=== PATIENT | male | born 1955 | race Caucasian/White ===

== ENCOUNTER 2021-02-02 07:03 | Observation (INO) ==
--- NOTE | 2021-01-28 09:12 | Anesthesiology Consultation ---
Date of Service January 28, 2021 Assessment & Plan (1) Encounter for pre-operative examination: Case originally scheduled for 12/16/20. Patient seen in PAT by Bebe Rueda PA-C on 11/26/20, chart cleared and pt acceptable risk for surgery. Case R/S to 02/02/21. 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 Preoperative COVID19 testing to be completed on 01/28 at [facility] per pt. Chart Review Chart Review: Acceptable Risk for Surgery and entry level finance initiated History Surgery Operation Date: 02/02/21 12:45 Proposed Procedures p Left Total Shoulder Arthroplasty, Open Distal Clavicle Excision - Urbano Luis MD Height/Weight Height: 5 ft 9 in Weight: 81.647 kg Allergies Allergy/AdvReac Type Severity Reaction Status Date / Time No Known Allergies Allergy Verified 01/13/21 11:14 Medications Home Medications Medication Instructions Recorded Confirmed Last Taken flaxseed oil 1,000 mg PO QAM 11/16/20 01/13/21 Unknown ibuprofen 600 mg PO HS 11/16/20 01/13/21 Unknown multivitamin 1 tab PO 3XWK 11/16/20 01/13/21 Unknown sertraline 50 mg PO QAM 11/16/20 01/13/21 Unknown Past Medical History Medical History Degenerative disc disease Depression Hx of esophageal reflux Controlled with dietary changes Hyperlipidemia Osteoarthritis Temporomandibular joint disorder Left side, no locking Past Family History Family History Father Family history of esophageal cancer Other No family history of adverse response to anesthesia Past Surgical History Surgical History H/O oral surgery H/O shoulder surgery R/L shoulder History of carpal tunnel release R/L History of colonoscopy History of herniorrhaphy Right inguinal History of total shoulder replacement Right Hx of vasectomy Social History Smoking Status: Current every day smoker tobacco type: cigarettes Smoking cigarettes per day: 10-15 CIGS A DAY Do You Dip or Chew Tobacco: No Hx Alcohol Use: No Hx Substance Use: Yes substance use type: marijuana Substance Use Type Other:: MARIJUANA INHALATION 2 X A MONTH-FOR PAIN-NO CARD Testing Laboratory Results 01/10/21 WBC: 6.7 H/H: 16.1/46.6 PLATELETS: 246 SODIUM: 140 POTASSIUM: 4.6 CHLORIDE: 106 CO2: 27 BUN: 19 CREATININE: 0.83 GLUCOSE: 99 A1C: 5.1% PT: 12.2 PTT: 29.7 INR: 0.9 UA: WNL Electrocardiogram Date: 11/26/20 Findings: + SB @ (57bpm with PACs) iRBBB. Due to system error, EKG was not uploaded into EMR and can only be viewed via [facility] system. Chest X-Ray Date: 11/26/20 Findings: + NAD
--- NOTE | 2021-02-01 19:14 | History & Physical Report ---
Date of Service February 01, 2021 Assessment & Plan (1) Primary osteoarthritis, left shoulder: Treatment options discussed with patient. He has failed conservative measures as above. He would like to proceed with surgical intervention. Risks, benefits and alternatives to surgery including but not limited to infection, DVT, pain, stiffness, need for revision surgery, damage to blood vessels, damage to nerves, PE, , were discussed with the patient and they wish to proceed. Plan for left total shoulder arthroplasty, distal clavicle excision, possible needle barbotage excision of calcific tendinitis. Surgery scheduled for [facility] on 02/02/21. Will plan on OPPT post discharge. All questions answered. History of Present Illness Chief Complaint: Left shoulder pain Primary Care Provider: NO PCP 65 yo male with PMHx significant for depression and past history of alcohol abuse presents with longstanding left shoulder pain. Pain interfering with his ability to carry out daily activities. He has had prior arthroscopy in this shoulder, as well as failed conservative measures including therapy, injections, and anti-inflammatories. He would like to proceed with surgical intervention. Patient denies headaches, sweats, fevers, chills, double vision, blurred vision, cough, sore throat, dysphagia, chest pain, sob, wheezing, n/v/d/c, numbness, t ingling, fatigue, urinary symptoms, mood disorders. ROS positive for left shoulder pain and stiffness. Allergies Allergy/AdvReac Type Severity Reaction Status Date / Time No Known Allergies Allergy Verified 01/13/21 11:14 Home Medications Medication Instructions Recorded Confirmed Type flaxseed oil 1,000 mg PO QAM 11/16/20 01/13/21 History ibuprofen 600 mg PO HS 11/16/20 01/13/21 History multivitamin 1 tab PO 3XWK 11/16/20 01/13/21 History sertraline 50 mg PO QAM 11/16/20 01/13/21 History Past Med/Surg History Medical History Degenerative disc disease Depression Hx of esophageal reflux Controlled with dietary changes Hyperlipidemia Osteoarthritis Temporomandibular joint disorder Left side, no locking Surgical History H/O oral surgery H/O shoulder surgery R/L shoulder History of carpal tunnel release R/L History of colonoscopy History of herniorrhaphy Right inguinal History of total shoulder replacement Right Hx of vasectomy Family History Father Family history of esophageal cancer Other No family history of adverse response to anesthesia Social History Smoking Status: Current every day smoker Cigarettes Per Day: 10-15 CIGS A DAY; Second Hand Exposure: No; Hx Alcohol Use: No Hx Substance Use: Yes Substance Use Type Other:: MARIJUANA INHALATION 2 X A MONTH-FOR PAIN-NO CARD Preferred Language: [place] Islander Communication Ability: Effective Steam Blocker Required: No Beliefs That Will Affect Care: None Current Living Situation: Spouse Feels Safe at Home: Yes Assistive Devices: Contacts and Glasses Review of Systems All systems reviewed & are unremarkable except as noted in HPI & below Physical Exam Constitutional: well developed and well nourished; no acute distress Eyes: PERRL, conjunctivae normal, anicteric sclerae ENMT: external ear and nose normal, oropharynx normal Neck: trachea midline, no thyromegaly Respiratory: normal respiratory effort, lungs clear to auscultation Cardiovascular: RRR, no murmur, no edema Musculoskeletal: Left shoulder: Tenderness AC joint and anterior glenoid. Active painful ROM. Abduction and FF 0-170 degrees. ER to 70 degrees, IR to L4. Strength is full in all directions, pain with resistive strength testing. Skin: no rashes, warm and dry Neurologic: patellar DTR's 2+ bilat, sensation intact Psychiatric: A+Ox3, euthymic affect Results & Data ([facility]) Diagnostic Findings X-rays left shoulder demonstrate that he has type A wear of the glenoid, bone on bone on axillary view, type I acromion, some hypertrophy, and moderate arthritic changes of the distal clavicle AC joint area. There is some rounded calcium deposit of the rotator cuff consistent with calcific tendonitis of the rotator cuff. Four-view left shoulder. MRI demonstrates intact rotator cuff
[~2021-02-02 07:03] MED LIST: ACETAMINOPHEN 500 MG TAB PO SCH; BUPIVACAINE 0.5 % 5 MG/1 ML PF 10ML VIAL ONE; CeleBREX 200 MG CAP PO SCH; FAMOTIDINE 20 MG TAB PO SCH; GABAPENTIN 600 MG DOSE PO SCH; LR 15ML/HR IV SCH; METOCLOPRAMIDE HCL 10 MG TABLET PO SCH; TRANEXAMIC ACID 1,000 MG **IV Intra-op IV SCH; TRANEXAMIC ACID 1,000 MG **IV Pre-op IV SCH; ceFAZolin 2000MG 2,000 MG/15 ML SYR IV SCH; dexAMETHasone 4 MG TAB PO SCH
[2021-02-02] MEDS ORDERED: LIDOCAINE 2% 2 ML VIAL/AMP(20MG/ML) INFIL ONE (08:00)
[2021-02-02] MEDS ORDERED: ONDANSETRON INJ 2 MG/ML 2 ML VIAL ONE (08:00)
[2021-02-02] MEDS ORDERED: PROPOFOL IV EMULSION 10 MG/ML 20 ML VIAL IV ONE (08:00)
[2021-02-02] MEDS ORDERED: DEXAMETHASONE SOD INJ 4 MG/ML VIAL ONE (08:00)
[2021-02-02] MEDS ORDERED: ROCURONIUM BROMIDE 10 MG/ML 5 ML VIAL IV ONE (08:00)
[2021-02-02] MEDS ORDERED: MIDAZOLAM HCL 1 MG/ML 2ML VIAL ONE (08:01)
[2021-02-02] MEDS ORDERED: fentaNYL citrate 100 MCG/2 ML VIAL ONE (08:01)
--- NOTE | 2021-02-02 09:34 | History & Physical Bridge Note ---
Date of Service February 02, 2021 History & Physical Bridge Note I have examined the patient, reviewed the History & Physical and in the interval since the performance of the History & Physical I have noted the following changes of clinical significance: no changes noted
[2021-02-02] MEDS ORDERED: EpINEphrine HCL INJ 1 MG/ML 1ML SYRINGE ONE (10:00)
[2021-02-02] MEDS ORDERED: fentaNYL citrate 100 MCG/2 ML VIAL IV PRN (11:34)
[2021-02-02] MEDS ORDERED: ATROPINE SULFATE 0.1 MG/ML 10ML SYR IV PRN (11:34)
[2021-02-02] MEDS ORDERED: ONDANSETRON INJ 2 MG/ML 2 ML VIAL IV PRN ×2 (11:34→14:50)
[2021-02-02] MEDS ORDERED: ePHEDrine sulfate 50 MG/ML AMP IV PRN (11:34)
[2021-02-02] MEDS ORDERED: NEOSTIGMINE METHYLSULFATE 1 MG/ML 10ML VIAL ONE (12:11)
[2021-02-02] MEDS ORDERED: GLYCOPYRROLATE 0.2 MG/ML VIAL ONE (12:11)
--- NOTE | 2021-02-02 13:07 | Post Operative Brief Note ---
Immediate Post Op Note v1 Date of Surgery February 02, 2021 Pre & Post Diagnosis Operation Date: 02/02/21 09:20 Pre-Op Diagnosis: Primary Osteoarthritis Left Shoulder glenohumeral and AC joint with calcific tendinitis rotator cuff Post-Op Diagnosis: Primary Osteoarthritis Left Shoulder glenohumeral and AC joint with calcific tendinitis rotator cuff, rotator cuff tendinopathy partial tear bursal surface supraspinatus and biceps tendinopathy bicipital groove bone spurs I identified the patient and participated in the time-out.: Yes Procedure Operation Date: 02/02/21 09:20 Actual Procedures p Left Total Shoulder Arthroplasty, Open Distal Clavicle Excision, biceps tenodesis, needle barbotage calcium deposit rotator cuff- Urbano Luis MD Surgeon Urbano Luis MD Baggage 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 Back up surgeon: was not required during procedure.
--- NOTE | 2021-02-02 14:06 | Anesthesiology Progress Note ---
Date of Service February 02, 2021 Anesthesia Post Procedure Vital Signs Vital Signs: Temp Pulse Pulse Resp BP Pulse Ox 02/02/21 14:00 68 20 135/75 94 02/02/21 13:50 72 18 132/71 97 02/02/21 13:40 62 15 128/65 97 02/02/21 13:32 36 C L 75 16 136/62 98 02/02/21 07:33 37.1 C 53 L 18 132/64 96 Transfer of Care Handoff Completed per policy Notes Mental Status: alert / awake / arousable and participated in evaluation Patient Amnestic to Procedure: Yes Nausea / Vomiting: adequately controlled Pain: adequately controlled Airway Patency, RR, SpO2: stable & adequate BP & HR: stable & adequate Hydration State: stable & adequate Anesthetic Complications: no major complications apparent and Pt Satisfied with anesthetic care Notes: block is functioning well
--- NOTE | 2021-02-02 14:33 | XRay Report ---
XR shoulder LT min 2V routine CLINICAL HISTORY: Post shoulder surgery COMPARISON: None. DISCUSSION: There are postsurgical changes of a left shoulder arthroplasty. There is no evidence of d islocation. There are overlying skin quintin and surgical drains present. There is gas within soft ti ssues consistent with recent surgery. There are left basilar pulmonary airspace opacities, likely ate lectatic. IMPRESSION: Postsurgical changes of a total left shoulder arthroplasty. No evidence of dislocation ACT 112: Negative or not required by law. Electronically signed by: Desean Morris M.D. 02/02/2021 2:32 PM
[2021-02-02] MEDS ORDERED: MULTIVITAMIN TAB PO SCH (14:50)
[2021-02-02] MEDS ORDERED: METOCLOPRAMIDE HCL INJ 5 MG/ML 2 ML VIAL IV PRN (14:50)
[2021-02-02] MEDS ORDERED: HYDROmorphone INJ 0.5 MG/0.5 ML SYR IV PRN (14:50)
[2021-02-02] MEDS ORDERED: NALOXONE HCL 0.4 MG/1 ML VIAL/CARP IV PRN (14:50)
[2021-02-02] MEDS ORDERED: oxyCODONE HCL IR 5 MG TAB (IMMEDIATE RELEASE) PO PRN (14:50)
[2021-02-02] MEDS ORDERED: MAGNESIUM HYDROXIDE SUSP 30 ML UDC PO PRN (14:50)
[2021-02-02] MEDS ORDERED: bisacodyL 10 MG SUPP PR PRN (14:50)
[2021-02-02] MEDS ORDERED: TAMSULOSIN HCL 0.4 MG CAP PO PRN (14:50)
[2021-02-02] MEDS ORDERED: SODIUM CHLORIDE 0.9% 1000ML 1,000 ML IV SCH (15:00)
[2021-02-02] MEDS: ACETAMINOPHEN 500 MG TAB PO SCH ×2 (15:40→22:44)
--- NOTE | 2021-02-02 17:02 | Consultation ---
Date of Consultation February 02, 2021 Assessment & Plan (1) Primary osteoarthritis, left shoulder: s/p arthroplasty pain is controlled vitals stable, labs stable plan for discharge to home per ortho told him to check with his PCP about sleep aide History of Present Illness Requesting Physician: Janelle Reason for Consultation: medical management A ttending Physician: Urbano Luis MD History of Present Illness 65 yo male here for elective shoulder arthroplasty, tolerated well, pain is starting to get worse. He is breathing well, no chest pain, no fever, no nausea. He says that the last time he had shoulder surgery his main issue was that he could not sleep for 3 days due to the intensity of the pain. He kept telling me that he has a very high pain tolerance. He says that he used to drink alcohol heavily, in the past when he would get anesthesia he would require more medication than a typical person due to his tolerance. He says that he can take all the narcotics they prescribe but he won't be able to sleep. He kept asking for a sleep aide on discharge "maybe something like Valium to knock me out." I explained that I am a hospitalist, I would not be following him after discharge and he lives over an hour away from here. I would not feel comfortable prescribing him a benzodiazepine on top of narcotics. Told him to contact his PCP on discharge to see if they would be willing to prescribe since they know him and could follow him in the office to see how he was doing. I reviewed the chart, operative report and lab studies. Allergies Allergy/AdvReac Type Severity Reaction Status Date / Time No Known Allergies Allergy Verified 02/02/21 07:30 Home Medications Medication Instructions Recorded Confirmed Type flaxseed oil 1,000 mg PO QAM 11/16/20 02/02/21 History multivitamin 1 tab PO 3XWK 11/16/20 02/02/21 History sertraline [Zoloft] 50 mg PO QAM 11/16/20 02/02/21 History acetaminophen 1,000 mg PO Q8 14 Days #84 tab 02/03/21 Rx aspirin [Ecotrin] 325 mg PO DAILY 30 Days #30 tab 02/03/21 Rx oxycodone 5 - 10 mg PO Q4H PRN #30 tab 02/03/21 Rx Patient History Medical History Degenerative disc disease Depression Hx of esophageal reflux Controlled with dietary changes Hyperlipidemia Osteoarthritis Temporomandibular joint disorder Left side, no locking Surgical History H/O oral surgery H/O shoulder surgery R/L shoulder History of carpal tunnel release R/L History of colonoscopy History of herniorrhaphy Right inguinal History of total shoulder replacement Right Hx of vasectomy Family History Father Family history of esophageal cancer Other No family history of adverse response to anesthesia Social History Smoking Status: Current every day smoker Cigarettes Per Day: 10-15 CIGS A DAY; Second Hand Exposure: No; Do You Dip or Chew Tobacco: No; Hx Alcohol Use: No Hx Substance Use: Yes Substance Use Type Other:: MARIJUANA INHALATION 2 X A MONTH-FOR PAIN-NO CARD Preferred Language: [place]an Communication Ability: Effective Golf Course Laborer Required: No Beliefs That Will Affect Care: None marital status: Current Living Situation: Spouse Other Information That Helps Us Care for You: No Feels Safe at Home: Yes Safety Concerns: Feels Safe At This Time Assistive Devices: None Assistive Devices Comment: PT WILL WEAR GLASSES DOS Review of Systems Review of Systems: All systems reviewed & are unremarkable except as noted in Subjective Constitutional: no fever, no chills, no sweats, no fatigue and no weakness Respiratory: no cough and no dyspnea Cardiovascular: no chest pain, no palpitations, no syncope and no edema Gastrointestinal: no abdominal pain, no nausea, no vomiting, no constipation and no diarrhea/loose stools Musculoskeletal: + joint pain (shoulder pain) Physical Exam Constitutional: WD/WN, vitals as above comfortable; no acute distress Eyes: PERRL, conjunctivae normal, anicteric sclerae ENMT: external ear and nose normal, oropharynx normal Neck: trachea midline, no thyromegaly Respiratory: normal respiratory effort, lungs clear to auscultation Cardiovascular: RRR, no murmur, no edema Gastrointestinal (Abdomen): normal bowel sounds, soft, nontender, no hepatosplenomegaly Musculoskeletal: Head/Neck/Chest: normocephalic, head atraumatic and neck supple Extremities: strength 5/5 throughout; no cyanosis, no clubbing and no petechiae Shoulder: + shoulder abnormal to inspection (left shoulder swollen, tender, limited ROM due to surgery) Skin: no rashes, warm and dry Neurologic: patellar DTR's 2+ bilat, sensation intact and PERRL, EOMI, accommodation nl, no face palsy, no dysarthria Psychiatric: A+Ox3, euthymic affect Lymphatic: no cervical or axillary lymphadenopathy Results & Data ([facility]) Vital Signs (Past 12 Hours) Vital Signs Temp Pulse Pulse Pulse Resp BP Pulse Ox 02/02/21 16:22 36.4 C L 70 16 128/71 94 02/02/21 15:23 67 18 133/81 94 02/02/21 14:57 66 18 138/77 94 02/02/21 14:20 36.4 C L 75 18 132/77 94 02/02/21 14:10 67 18 131/74 95 02/02/21 14:00 68 20 135/75 94 02/02/21 13:50 72 18 132/71 97 02/02/21 13:40 62 15 128/65 97 02/02/21 13:32 36 C L 75 16 136/62 98 02/02/21 07:33 37.1 C 53 L 18 132/64 96 PG Care Time/CCT Total # of Minutes Spent Total Time Spent with Patient: Total time spent is greater than 50% in coordination of care (as documented) at patient's floor/unit and/or counseling patient: Coding Level of Care Code 85345 Inpt Consult Level 2 Diagnoses Primary osteoarthritis, left shoulder M19.012
[2021-02-02] MEDS: ceFAZolin 2000MG 2,000 MG/15 ML SYR IV SCH (17:18)
[2021-02-02] MEDS: DOCUSATE SODIUM 100 MG CAP PO SCH (20:29)
[2021-02-02] MEDS ORDERED: SENNA 8.6 MG TAB PO SCH (21:00)
[2021-02-03] MEDS: ceFAZolin 2000MG 2,000 MG/15 ML SYR IV SCH (01:01)
--- NOTE | 2021-02-03 03:28 | Operative Report (OR) ---
DATE OF OPERATION: 02/02/2021 INDICATION FOR PROCEDURE: A 65-year-old male with chronic progressive osteoarthritis of his left shoulder. The patient has failed all conservative management. The patient has history of total shoulder replacement on his opposite shoulder. His radiographs of the left shoulder demonstrate he is [id number] in the glenohumeral joint, typical inferior humeral osteophyte, moderately large. He has some calcific tendinitis of the rotator cuff and has advanced arthritis in the AC joint. The patient has a type A central wear pattern. PREOPERATIVE DIAGNOSIS: End-stage osteoarthritis, glenohumeral joint and AC joint, left shoulder. POSTOPERATIVE DIAGNOSES: End-stage osteoarthritis, glenohumeral joint and AC joint, left shoulder including some partial tearing of the rotator cuff bursal surface, which is superficial and calcific tendinitis of the rotator cuff and marked biceps tendinopathy with bicipital bone groove spurs and biceps tenosynovitis. PROCEDURE: Left total shoulder arthroplasty with stemless total shoulder replacement, biceps tenodesis, distal clavicle excision, needle barbotage, calcium deposit, debridement of partial tear of rotator cuff. SURGEON: Urbano Luis MD PRODUCTION UTILITY WORKER: Jose Echeverria PA-C ANESTHESIA: Regional block and general. OPERATIVE PROCEDURE: The patient was taken to the operating room, anesthetized under regional block and general anesthetic. The patient was positioned on the operating room table in about a 40-degree beach chair position. A towel was placed in the medial border of his left scapula. He was translated to left side of the bed, so his shoulder could be manipulated off the bed as necessary. His head was placed on a foam headrest and he had protective eyewear placed. He had TEDs and SCDs placed. All the extremities were well padded. His left upper extremity exam demonstrated he had about 150 degrees forward elevation, 80 degrees of abduction, external rotation to 70 degrees, and internal rotation only to 40. He had [id number] crepitation. He had prominent AC joint. Left shoulder was sterilely prepped and draped with ChloraPrep. An anterior deltopectoral approach was performed. Skin was incised sharply. Subcutaneous flaps were elevated. Cephalic vein was dissected out and retracted laterally with the deltoid. Deltoid was retracted laterally, pectoralis medially. The conjoined tendon was identified. The clavipectoral fascia was divided at the lateral margin of conjoined tendon extending up to the CA ligament, which was preserved. There was bursitis over the subscapularis and rotator cuff, this was resected. This revealed some bursal-sided linear wear in the supraspinatus tendon, which was superficial and this was debrided back to stable intact nonfrayed fibers. There was no full thickness rotator cuff tear anywhere and no evidence of any high-grade partial tear anywhere. In the calcific tendinitis area, based on MRI and x-ray, we did a needle barbotage in that area. The calcium deposit was not well visualized in the rotator cuff tissue. Then the humerus was then exposed by first opening up the biceps tendon sheath and this demonstrated chronic tenosynovitis and proximally in the bicipital groove there were large osteophytes impinging on the biceps tendon and there was widening and tendinopathy of the biceps tear. Thickened tenosynovium was resected. The upper centimeter of the pectoralis was released for inferior exposure. Then #2 FiberWire was passed through the pectoralis tendon and the biceps tendon was tenodesed to the pectoralis tendon and the proximal biceps was resected proximal to the tenodesis site. A #2 FiberWire sutures were utilized for the tenodesis. Bicipital bone spurs were then resected with a rongeur. Then circumflex vessels were identified, tied off with silk ties, and divided laterally. Then Metzenbaum scissors was used to split the subscapularis tendon fibers at the level of the circumflex vessels and left a small cuff of tissue for protection of the axillary nerve inferiorly using a Kitner elevator to elevate the muscle fibers off the inferior capsule. A blunt Hohmann retractor was placed between the capsule and the axillary nerve. The retractor was placed superiorly. The rotator interval was opened up and extended laterally and then a transtendinous incision was made leaving a cuff of tissue on the lesser tuberosity for repair of the subscapularis. Subscapularis and capsule were taken down in one layer. The capsule was then released off the inferior glenoid neck exposing the large inferior osteophytes. The axillary nerve was protected with the inferior retractor. The osteophytes were resected with artist chisel and rongeur, so all osteophytes were resected. The capsule was also released for further exposure. A #1 Vicryl traction suture was placed into the edge of the subscapularis tendon. The Fukuda retractor was placed protecting the humeral head posteriorly. The capsule was released down to the glenoid under direct visualization, the capsule was released anteriorly off the glenoid and the rotator interval was released to meet that making a 360-degree release of the subscapularis. The glenoid was inspected and was completely eburnated bone with no articular cartilage remaining. There was central wear pattern. At this time, the glenoid labrum was resected. The remainder of the biceps tendon attached to the superior glenoid was resected. An anterior inferior, posterior inferior capsular release was performed with the axillary nerve protected with the retractor using electrocautery on bone and [place] elevator. At this time, the posterior retractors were readjusted to gain full exposure of the glenoid. Anterior Bankart retractor was placed. Prior to placing these retractors, we addressed the humeral head cut. The humeral head was exposed with extension and external rotation and retractors were placed about the humeral head. The humeral head demonstrated eburnated bone and some flattening and bone loss with central wear pattern. The oscillating saw was used to resect the anatomical head cut. The humerus was sized for a 50 x 19 humeral head component based on preoperative templating. The guide pin was placed for the stemless Tornier humeral head. The guide pin was placed and then the surface reamer was used and then the central drill was used for the size 3 nucleus for the Simpliciti humeral head component. Then the trial Dora shaped punch was used left slightly proud and a cup protector was placed. Then the humeral head was retracted posterior to the glenoid with the Tornier retractor and blunt Hohmann retractor and Bankart retractor anteriorly. The glenoid was sized for a large 40 radius CortiLoc pegged glenoid component. The guide for the central drill hole was placed followed by drilling the central hole followed by the reamer, followed by widening the central hole followed by the peg guide drilling 3 pegs and irrigating everything out and placing a trial large 40 radius CortiLoc glenoid component, which had excellent press fit and stability. This was removed and then after copious irrigation, the drill holes were packed with epinephrine-soaked tampon sponges and the [place] G cement was vacuum mixed and then after further drying off of the glenoid, removing of the tampons, we went ahead and cemented the large 40 radius CortiLoc peg glenoid into position, central peg being pressfit, peripheral pegs cemented, back of the implant cemented. All excess cement was cleared. The implant was held in position until the cement cured. Then attention was taken back to trialing of the 50 x 19 head, which had excellent range of motion and stability and was appropriate size. The trials were then removed. A drill hole was made in the hard bone in the biceps groove and transosseous #5 FiberWire sutures were placed x3. After further irrigation, the final humeral head components were placed with the Simpliciti nucleus size 3 impacted into position, left slightly proud, and then the humeral head 50 x 19 was placed into the nucleus and then both were impacted tightly to fully seat the implant. [place] elevator was used to assess the stability and it was completely stable. The humeral head was then reduced to the glenoid. The subscapularis and capsule repaired with transosseous #5 FiberWire sutures using Dayo-Noe suture technique. Lateral row repair with interrupted #2 Fiberwire [id number] sutures. Rotator interval was closed with interrupted #2 Fiberwire laubxy-lj-fkkyx sutures. The pectoralis was repaired with gquiwg-in-twqdg #2 FiberWire suture, placing the sutures through the biceps tendon to reinforce the stability of the biceps tenodesis. The arm was taken through range of motion and the patient had 150 degrees forward elevation, 90 to 100 degrees of abduction, and 60 degrees external rotation without any tension on the repair. A sponge was placed into the wound. Then a transverse incision was made over the distal clavicle. The skin was incised sharply and then subcutaneous flaps were elevated and the trapezius deltoid fascia was divided longitudinally over the distal clavicle, reflected off the distal clavicle, a 1 cm of the distal clavicle was resected with an oscillating saw. All dorsal osteophytes were resected with a rongeur. The wound was irrigated and the deltotrapezial fascia was repaired with interrupted jznklp-wa-goruy #2 FiberWire sutures and then the subcutaneous tissue was closed with interrupted 2-0 Vicryl sutures and the skin was then closed with quintin and then in the deltopectoral incisional area, two drains were brought out laterally and then the deltopectoral interval was repaired with interrupted #1 Vicryl sutures over the drains and then the subcutaneous tissue closed with interrupted 2-0 Vicryl and skin was closed with quintin. Sterile dressings were applied and a shoulder immobilizer. The patient had estimated blood loss of 40 mL with no complications and the patient tolerated the procedure well. VENANCIO Graham, was my field research assistant and functioned as field research assistant for the entire procedure. He assisted in patient positioning, arm positioning, assisted in prepping, draping, assisted in soft tissue retraction, instrument management during the procedure, and performed the subcutaneous and skin closures, dressing changes, and sling application and will participate in postoperative care of the patient as well. I attest to the content of the Intraoperative Record and any orders documented therein. Any exceptions are noted below. SUKHWINDER
[2021-02-03] MEDS: ACETAMINOPHEN 500 MG TAB PO SCH ×2 (05:12→13:24)
[2021-02-03 05:48] LABS: Basophils # (auto) 0.02 K/uL (0-0.2); Basophils % (auto) 0.2 %; Eosinophils # (auto) 0.05 K/uL (0-0.5); Eosinophils % (auto) 0.4 %; Hematocrit (blood only) 38.2 % (42-52); Hemoglobin 13.4 g/dL (14.0-18.0); Immature Granulocytes # (auto) 0.02 K/uL (0.00-0.02); Immature Granulocytes % (auto) 0.2 %; Lymphocytes # (auto) 2.06 K/uL (1.2-3.4); Lymphocytes % (auto) 18.1 %; Mean Corpuscular Hemoglobin 32.4 pg (25-34); Mean Corpuscular Hgb Conc 35.1 g/dL (32-36); Mean Corpuscular Volume 92.3 fL (80-100); Mean Platelet Volume 10.7 fL (7.4-10.4); Monocytes # (auto) 1.03 K/uL (0.11-0.59); Monocytes % (auto) 9.1 %; Platelet Count 234 K/uL (130-400); RDW Coefficient of Variation 12.7 % (11.5-14.5); RDW Standard Deviation 43.1 fL (36.4-46.3); Red Blood Count 4.14 M/uL (4.7-6.1); White Blood Count 11.38 K/uL (4.8-10.8)
[2021-02-03 06:01] LABS: BUN Creatinine Ratio 20.6 (10-20); Calcium 8.7 mg/dl (8.5-10.1); Creatinine Clr Calc Pharmacy 130.9 ml/min; Est GFR (African American) 125.8 ml/min; Est GFR (Non-African American) 108.5 ml/min; Potassium 3.6 mmol/L (3.5-5.1)
[2021-02-03] MEDS: DOCUSATE SODIUM 100 MG CAP PO SCH (07:47)
[2021-02-03] MEDS ORDERED: SERTRALINE HCL 50 MG TABLET PO SCH (09:00)
[2021-02-03] MEDS ORDERED: MULTIVITAMIN TAB PO SCH (09:00)
[2021-02-03] MEDS ORDERED: KETOROLAC 30 MG/ML VIAL IV ONE (09:26)
--- NOTE | 2021-02-03 09:58 | Orthopedic Progress Note ---
Date of Service February 03, 2021 Assessment & Plan (1) Primary osteoarthritis, left shoulder: Postop day 1 status post left total shoulder arthroplasty. PT/OT protocols. Nonweightbearing on the left upper extremity. DVT prophylaxis-KETURAH Oleary. Pain management-oxycodone, hydromorphone, Tylenol. 1 dose of Toradol 50 mg IV given to help with his current pain control. DC planning-patient is planning for outpatient PT upon discharge. Admission and Anticipated Discharge Date Admission Date: February 02, 2021 Subjective Postop day 1 Patient sitting up in his bed awake and alert. States that his block is starting to wear off and he is having some increased pain. He had just received p.o. pain meds about an hour prior. No other complaints at this time. Denies shortness of breath, chest pain, lightheadedness. Physical Exam Physical Exam: Dressings are clean, dry, and intact. Hemovac is present and has minimal drainage. He has no residual numbness in his fingers and has good range of motion of his wrist and fingers at this time. He has good strength. Cap refills less than 2 seconds. Results & Data ([facility]) Vital Signs (Past 12 Hours) Vital Signs Temp Pulse Resp BP Pulse Ox 02/03/21 07:30 36.8 C 58 L 16 126/71 98 02/03/21 04:44 37.0 C 64 16 135/75 96 02/02/21 22:17 36.9 C 69 16 112/70 96 Laboratory Results Laboratory Results WBC 11.38 K/uL (4.8-10.8) H 02/03/21 05:19 RBC 4.14 M/uL (4.7-6.1) L 02/03/21 05:19 Hgb 13.4 g/dL (14.0-18.0) L 02/03/21 05:19 Hct 38.2 % (42-52) L 02/03/21 05:19 MCV 92.3 fL (80-100) 02/03/21 05:19 MCH 32.4 pg (25-34) 02/03/21 05:19 MCHC 35.1 g/dL (32-36) 02/03/21 05:19 RDW Std Deviation 43.1 fL (36.4-46.3) 02/03/21 05:19 RDW Coeff of Dave 12.7 % (11.5-14.5) 02/03/21 05:19 Plt Count 234 K/uL (130-400) 02/03/21 05:19 MPV 10.7 fL (7.4-10.4) H 02/03/21 05:19 Immature Gran % (Auto) 0.2 % 02/03/21 05:19 Neut % (Auto) 72.0 % 02/03/21 05:19 Lymph % (Auto) 18.1 % 02/03/21 05:19 [place] % (Auto) 9.1 % 02/03/21 05:19 Eos % (Auto) 0.4 % 02/03/21 05:19 Baso % (Auto) 0.2 % 02/03/21 05:19 Neut # (Auto) 8.20 K/uL (1.4-6.5) H 02/03/21 05:19 Lymph # (Auto) 2.06 K/uL (1.2-3.4) 02/03/21 05:19 [place] # (Auto) 1.03 K/uL (0.11-0.59) H 02/03/21 05:19 Eos # (Auto) 0.05 K/uL (0-0.5) 02/03/21 05:19 Baso # (Auto) 0.02 K/uL (0-0.2) 02/03/21 05:19 Immature Gran # (Auto) 0.02 K/uL (0.00-0.02) 02/03/21 05:19 Sodium 141 mmol/L (136-145) 02/03/21 05:19 Potassium 3.6 mmol/L (3.5-5.1) 02/03/21 05:19 Chloride 110 mmol/L (98-107) H 02/03/21 05:19 Carbon Dioxide 28 mmol/L (21-32) 02/03/21 05:19 Anion Gap 3.0 (3-11) 02/03/21 05:19 BUN 12 mg/dl (7-18) 02/03/21 05:19 Creatinine 0.57 mg/dl (0.6-1.4) L 02/03/21 05:19 Est Cr Clr Drug Dosing 130.9 ml/min 02/03/21 05:19 Est GFR ( Amer) 125.8 ml/min 02/03/21 05:19 Est GFR (Non-Af Amer) 108.5 ml/min 02/03/21 05:19 BUN/Creatinine Ratio 20.6 (10-20) H 02/03/21 05:19 Glucose 123 mg/dl (70-99) H 02/03/21 05:19 Calcium 8.7 mg/dl (8.5-10.1) 02/03/21 05:19 COVID-19 Eval Order Covid19 IDNow [facility] 02/02/21 07:10 SARS-CoV-2, RNA, NAAT NEGATIVE (NEGATIVE) 02/02/21 07:10 Impressions Shoulder X-Ray 02/02/21 13:39 XR shoulder LT min 2V routine CLINICAL HISTORY: Post shoulder surgery COMPARISON: None. DISCUSSION: There are postsurgical changes of a left shoulder arthroplasty. There is no evidence of dislocation. There are overlying skin quintin and surgical drains present. There is gas within soft tissues consistent with recent surgery. There are left basilar pulmonary airspace opacities, likely atelectatic. IMPRESSION: Postsurgical changes of a total left shoulder arthroplasty. No evidence of dislocation ACT 112: Negative or not required by law. Electronically signed by: Desean Morris M.D. 02/02/2021 2:32 PM
--- NOTE | 2021-02-04 18:39 | Discharge Summary ---
Date of Service February 04, 2021 Admission HPI Per Admitting Provider 65 yo male with PMHx significant for depression and past history of alcohol abuse presents with longstanding left shoulder pain. Pain interfering with his ability to carry out daily activities. He has had prior arthroscopy in this shoulder, as well as failed conservative measures including therapy, injections, and anti-inflammatories. He would like to proceed with surgical intervention. Patient denies headaches, sweats, fevers, chills, double vision, blurred vision, cough, sore throat, dysphagia, chest pain, sob, wheezing, n/v/d/c, numbness, tingling, fatigue, urinary symptoms, mood disorders. ROS positive for left shoulder pain and stiffness. Admission Exam Per Admitting Provider Constitutional: well developed and well nourished; no acute distress Eyes: PERRL, conjunctivae normal, anicteric sclerae ENMT: external ear and nose normal, oropharynx normal Neck: trachea midline, no thyromegaly Respiratory: normal respiratory effort, lungs clear to auscultation Cardiovascular: RRR, no murmur, no edema Musculoskeletal: Left shoulder: Tenderness AC joint and anterior glenoid. Active painful ROM. Abduction and FF 0-170 degrees. ER to 70 degrees, IR to L4. Strength is full in all directions, pain with resistive strength testing. Skin: no rashes, warm and dry Neurologic: patellar DTR's 2+ bilat, sensation intact Psychiatric: A+Ox3, euthymic affect Principal Diagnosis Left shoulder osteoarthritis Discharge Exam Constitutional well developed and well nourished; no acute distress Eyes PERRL, conjunctivae normal, anicteric sclerae ENMT external ear and nose normal, oropharynx normal Neck trachea midline, no thyromegaly Respiratory normal respiratory effort, lungs clear to auscultation Cardiovascular RRR, no murmur, no edema Skin no rashes, warm and dry Neurologic patellar DTR's 2+ bilat, sensation intact Psychiatric A+Ox3, euthymic affect Discharge Data Allergies Allergy/AdvReac Type Severity Reaction Status Date / Time No Known Allergies Allergy Verified 02/02/21 07:30 Consultations 01/28/21 13:43 Consult Hospitalist Routine Procedures Performed Operation Date: 02/02/21 09:20 Actual Procedures p Left Total Shoulder Arthroplasty, Open Distal Clavicle Excision, Biceps Tendonesis, Needle Barbitage of Calcium Deposit(Left) - Urbano Luis MD Ordered Studies 02/02/21 05:00 US - OR guided needle placemen Routine Hospital Course (1) Primary osteoarthritis, left shoulder: Patient presented for same day admission following left total shoulder arthroplasty and open distal clavicle excision on 02/02/21. He tolerated procedure well. The Patient had an uneventful hospital course. Post-operatively, his activity was progressed and well tolerated. They participated in PT. Labs remained stable- lowest hemoglobin recorded:13.4. Dr. Israel Gilman of medical service was consulted for medical management during admission. Pain controlled on oral medications. Please refer to daily progress notes and PT notes for complete details. After exam on 02/03/21, patient was felt to be stable for discharge home with outpatient PT planned. Patient will f/u in the office in about 2 weeks for further evaluation including x-rays and incision check, sooner if having any issues or concerns. Postop day 1 status post left total shoulder arthroplasty. PT/OT protocols. Nonweightbearing on the left upper extremity. DVT prophylaxis-KETURAH Oleary. Pain management-oxycodone, hydromorphone, Tylenol. 1 dose of Toradol 50 mg IV given to help with his current pain control. DC planning-patient is planning for outpatient PT upon discharge. Lab Results 02/02/21 02/02/21 02/03/21 Range/Units 07:10 07:10 05:19 WBC 11.38 H (4.8-10.8) K/uL RBC 4.14 L (4.7-6.1) M/uL Hgb 13.4 L (14.0-18.0) g/dL Hct 38.2 L (42-52) % MCV 92.3 (80-100) fL MCH 32.4 (25-34) pg MCHC 35.1 (32-36) g/dL RDW Std Deviation 43.1 (36.4-46.3) fL RDW Coeff of Dave 12.7 (11.5-14.5) % Plt Count 234 (130-400) K/uL MPV 10.7 H (7.4-10.4) fL Immature Gran % (Auto) 0.2 % Neut % (Auto) 72.0 % Lymph % (Auto) 18.1 % [place] % (Auto) 9.1 % Eos % (Auto) 0.4 % Baso % (Auto) 0.2 % Neut # (Auto) 8.20 H (1.4-6.5) K/uL Lymph # (Auto) 2.06 (1.2-3.4) K/uL [place] # (Auto) 1.03 H (0.11-0.59) K/uL Eos # (Auto) 0.05 (0-0.5) K/uL Baso # (Auto) 0.02 (0-0.2) K/uL Immature Gran # (Auto) 0.02 (0.00-0.02) K/uL Sodium (136-145) mmol/L Potassium (3.5-5.1) mmol/L Chloride (98-107) mmol/L Carbon Dioxide (21-32) mmol/L Anion Gap (3-11) BUN (7-18) mg/dl Creatinine (0.6-1.4) mg/dl Est Cr Clr Drug Dosing ml/min Est GFR ( Amer) ml/min Est GFR (Non-Af Amer) ml/min BUN/Creatinine Ratio (10-20) Glucose (70-99) mg/dl Calcium (8.5-10.1) mg/dl COVID-19 [facility] SARS-[facility]-2, RNA, NAAT NEGATIVE (NEGATIVE) 02/03/21 Range/Units 05:19 WBC (4.8-10.8) K/uL RBC (4.7-6.1) M/uL Hgb (14.0-18.0) g/dL Hct (42-52) % MCV (80-100) fL MCH (25-34) pg MCHC (32-36) g/dL RDW Std Deviation (36.4-46.3) fL RDW Coeff of Dave (11.5-14.5) % Plt Count (130-400) K/uL MPV (7.4-10.4) fL Immature Gran % (Auto) % Neut % (Auto) % Lymph % (Auto) % [place] % (Auto) % Eos % (Auto) % Baso % (Auto) % Neut # (Auto) (1.4-6.5) K/uL Lymph # (Auto) (1.2-3.4) K/uL [place] # (Auto) (0.11-0.59) K/uL Eos # (Auto) (0-0.5) K/uL Baso # (Auto) (0-0.2) K/uL Immature Gran # (Auto) (0.00-0.02) K/uL Sodium 141 (136-145) mmol/L Potassium 3.6 (3.5-5.1) mmol/L Chloride 110 H (98-107) mmol/L Carbon Dioxide 28 (21-32) mmol/L Anion Gap 3.0 (3-11) BUN 12 (7-18) mg/dl Creatinine 0.57 L (0.6-1.4) mg/dl Est Cr Clr Drug Dosing 130.9 ml/min Est GFR ( Amer) 125.8 ml/min Est GFR (Non-Af Amer) 108.5 ml/min BUN/Creatinine Ratio 20.6 H (10-20) Glucose 123 H (70-99) mg/dl Calcium 8.7 (8.5-10.1) mg/dl COVID-19 Eval Order SARS-CoV-2, RNA, NAAT (NEGATIVE) Total Time Total Time Spent Total Time Spent (In Minutes): 20 Discharge Plan Discharge Items Patient Disposition: Home - Self-Care Reason For Visit: Primary Osteoarthritis Left Shoulder Discharge Diagnosis: Left shoulder osteoarthritis Activity: Per Instructions section Weightbearing: Left non-weightbearing Non-emergency contact: Surgeon Call non-emergency contact if: you have any medication questions, your pain is not controlled, your temperature is above 101.5, your wound has increased redness and your wound has increased drainage Follow-up/Referrals: Sravan Perea MD [Primary Care Provider] - Diet: Regular Addtl Attending Provider Instructions: ACTIVITY RECOMMENDATIONS: SELF CARE INSTRUCTIONS AFTER TOTAL SHOULDER ARTHROPLASTY A. You may do daily exercises as taught in physical therapy while in hospital. No lifting with the operative arm. Please schedule your outpatient physical therapy appointment to begin within 2-3 days after leaving the hospital. Specific restrictions will be written on your physical therapy prescription that is provided to you. B. You are to wear your sling/immobilizer at all times EXCEPT when performing your daily exercises, participating in physical therapy and for hygiene purposes. C. You may perform dry, daily dressing changes. Please keep your incision covered. You may shower 48 hours after surgery. Do not apply soap or any ointment/lotions directly over incision. Do not soak incision in bath tub/swimming pool. D. You may use ice as needed to operative shoulder. SPECIAL CARE INSTRUCTIONS: MEDICATION INSTRUCTIONS: *It is recommended you take Aspirin 325mg daily for four weeks post-op. VERY IMPORTANT TO READ AND REVIEW A. There are a few signs you need to watch for after you are home. Call [facility] at [phone] if you experience any of the followin. Increased severe shoulder pain. Some pain is expected especially when you exercise. 2. Increased swelling in you shoulder or arm; pain or swelling in either upper extremity. 3. Any fluid drainage from the incision. 4. Shortness of breath or chest pain. B. Please call [facility] at [phone] if you have any questions or concerns about your operation or recovery. C. Call your physician if: 1. Temperature is greater than 101 degrees (F). 2. Pain is not relieved by prescribed pain medications. 3. Increase drainage or redness from incision. 4. Unanswered questions or concerns. FOLLOW UP VISIT: Please call [facility] at [phone] to schedule a follow up appointment with Dr. Luis or his PA in 12-14 days from your surgery date. Stand-Alone Forms: My [facility] [employer], Smoking Cessation Medications and DC Order Prescriptions: New acetaminophen 500 mg Tablet 1,000 mg PO Q8 14 Days Qty: 84 RF: 0 aspirin [Ecotrin] 325 mg tablet,delayed release (DR/EC) 325 mg PO DAILY 30 Days Qty: 30 RF: 0 oxycodone 5 mg Tablet 5 - 10 mg PO Q4H PRN (Reason: pain) Qty: 30 RF: 0 Continued multivitamin Tablet 1 tab PO [id number] RF: 0 flaxseed oil 1,000 mg Capsule 1,000 mg PO QAM RF: 0 sertraline [Zoloft] 50 mg Tablet 50 mg PO QAM RF: 0 Discontinued ibuprofen 600 mg Tablet 600 mg PO HS RF: 0 Discharge Orders: Discharge Order (Routine); Ordered 02/03/21 Ordered By: Pankaj Brooks Admission Data Admit Date/Time: 02/02/21 13:41 Attending Provider: Urbano Luis Admit Provider: Urbano Luis Primary Care Provider: Sravan Perea Other Providers: Angel Gilman Other Interventions: Discharge Summary Assessment (RN) Last Done: 02/03/21 12:32
== END 2021-02-03 14:36 | disposition home or self-care (01) ==
LOC: 3E 07:03 → ASU 07:03